=== PATIENT | female | born 1990 | race Caucasian/White ===

== ENCOUNTER 2016-08-26 19:54 | Emergency (ER) | payer MEDICAID ==
[~2016-08-26 19:54] MED LIST: ALBUTEROL2.5 MG/3 M INH; ALEVE 220MG220 MG PO; FLEXERIL 1010 MG/TAB PO; KETOROLAC10 MG PO; MACROBID 100 M100 MG PO; RELION VEN0.09 MG/Ac IH; ULTRAM50 M1 PO; ZITHROMAX Z PA250 MG PO
[2016-08-26] MEDS ORDERED: FIORICET1 CAP PO (19:55)
[2016-08-26] MEDS ORDERED: CEPHALEXIN500 M2 PO (20:33)
== END 2016-08-26 20:46 | disposition home or self-care (01) ==
LOC: ED 19:54
DX: L72.3 Sebaceous cyst (principal); Z33.1 Pregnant state, incidental

== ENCOUNTER 2016-10-13 23:40 | Emergency (ER) | payer MEDICAID ==
[~2016-10-13 23:40] MED LIST changes: +CEPHALEXIN500 M2 PO; +FIORICET1 CAP PO
[2016-10-13] MEDS ORDERED: PRENATABS FA1 TAB PO (23:48)
[2016-10-14 01:25] VITALS: BP 127/75
== END 2016-10-14 01:25 | disposition home or self-care (01) ==
LOC: ED 23:40
DX: M25.572 Pain in left ankle and joints of left foot (principal); Z33.1 Pregnant state, incidental

== ENCOUNTER 2016-12-05 15:24 | Emergency (ER) | payer MEDICAID ==
[~2016-12-05] VITALS: Ht 157.5 cm; Wt 107.3 kg
[~2016-12-05 15:24] MED LIST changes: +PRENATABS FA1 TAB PO
[2016-12-05] MEDS ORDERED: PROVENTIL0.09 MG/A1 IH (15:28)
[2016-12-05 17:19] VITALS: BP 136/84
== END 2016-12-05 17:26 | disposition home or self-care (01) ==
LOC: ED 15:24
DX: M54.41 Lumbago with sciatica, right side (principal)